=== PATIENT | male | born 1990 | race Caucasian/White ===

== ENCOUNTER 2020-07-14 19:47 | Emergency (ER) | payer MEDICAID, SELFPAY ==
[2020-07-14 19:52] VITALS: BP 138/82; PULSE 95; RESP 15; TEMP 36.7; O2SAT 98; BMI 27.2
--- NOTE | 2020-07-14 21:04 | ED_ITS ---
HPI - Eye Problem General: Chief complaint: Eye Problems Stated complaint: rust in eyes Time Seen by Provider: 07/14/20 20:35 History of Present Illness: HPI Narrative: Patient got rust in both eyes while working on car earlier today. Complains of foreign body in both eyes. chief complaint: foreign body (Right and left) Onset (ago): hour(s) Onset description: sudden Duration: constant Location: both eyes Eye Symptoms: foreign body sensation Place: home Mechanism: other (Rust fell off axle .) Severity: mild Associated symptoms: Denies fever(s) Treatments Prior to Arrival: irrigated eye Review of Systems Const: Denies: fever(s) Eyes: Reports: eye discomfort and increased production of tears; Denies: change in vision, blurry vision or eye redness Psych: Denies: anxiety Physical Exam Const: COMMON NORMALS: no acute distress Eye: COMMON NORMALS: EOMs intact bilaterally EYE IMAGES: 1. Piece of metal I was able to remove 2. Piece of metal i was able to remove Psych: COMMON NORMALS: mental status grossly normal Procedures FB Removal Eye Time Out performed: No Location: eye (L) and eye (R) Topical anesthetic used: tetracaine Foreign body: metal Evidence of corneal penetration: No Technique: needle Procedure performed under: direct visualization with magnification Post-procedure medication: ophthalmic antibiotic and topical anesthetic Patient tolerated procedure: well Course Vital Signs: Vital signs: Vital Signs Temperature 98.0 F 07/14/20 19:52 Pulse Rate 95 07/14/20 19:52 Respiratory Rate 15 07/14/20 19:52 Blood Pressure 138/82 07/14/20 19:52 Pulse Oximetry 98 07/14/20 19:52 Discharge Plan Discharge Patient Disposition: Home Clinical Impression: Retained foreign body of both eyes Condition: Stable Prescriptions: New Gentak 0.3 % (3 mg/gram) ointment 1 applic ophthalmic (eye) TID 5 Days Qty: 3.5 RF: 0 Discharge Orders: Discharge ED (Routine); Ordered 07/14/20 Ordered By: Gentry Borden Referrals: Maria Teresa Nieves PAC [Primary Care Provider] - Discharge Diet: Usual diet Discharge Activity: Increase activity as tolerated Patient Instructions: Eye Foreign Body (ED) Activity Restrictions/Additional Instructions: Follow-up with medical provider as directed. Take medications as prescribed. Return to the ER or your medical provider if condition worsens. Please read and understand discharge instructions. If any questions ask please. 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
[2020-07-14] MEDS: tetanus-dipt-pertussis 0.5 mL SDV IM (21:16)
[2020-07-14] MEDS: neomycin-poly-dex Op 5 mL Btl 2 DROP EYE-BOTH (21:17)
[2020-07-14] MEDS: fluorescein 1 mg Strip EYE-RIGHT (21:18)
[2020-07-14] MEDS: eye irrigation 30 mL Btl EYE-RIGHT (21:18)
[2020-07-14] MEDS: tetracaine 0.5% Op Soln 4 mL Btl 1 DROP EYE-RIGHT (21:18)
[2020-07-14 21:20] VITALS: BP 125/72; PULSE 102; RESP 15; TEMP 36.7; O2SAT 98
== END 2020-07-14 21:45 | disposition home or self-care (01) ==
PROVIDERS: Emergency Provider Nurse Practitioner Family; PCP Physician Assistant
DX: T15.92XA Foreign body on external eye, part unspecified, left eye, initial encounter (principal); T15.91XA Foreign body on external eye, part unspecified, right eye, initial encounter; Z23 Encounter for immunization; X58.XXXA Exposure to other specified factors, initial encounter
CPT/HCPCS: 65205; 65220; 90471; 90715; 99283

== ENCOUNTER 2020-07-15 15:19 | Emergency (ER) | payer MEDICAID, SELFPAY ==
[2020-07-15 15:34] VITALS: BP 110/75; PULSE 81; RESP 18; TEMP 36.5; O2SAT 97; BMI 27.2
--- NOTE | 2020-07-15 18:25 | ED_ITS ---
HPI - Eye Problem General: Chief complaint: Eye Problems Stated complaint: Rust In Eyes. Here 07/14/20 Time Seen by Provider: 07/15/20 18:06 History of Present Illness: HPI Narrative: Mr. Gilliam is able to see just fine. Says his left eye is irritated. Right eye is doing fine. Says drops seen make his eye hurt and complains about eye redness. He said he did not understand his instructions that he was supposed to follow-up with an eye doctor today. He is having clear drainage from his eyes. chief complaint: eye pain and eye redness Onset (ago): hour(s) Onset description: awoke with symptoms Duration: constant Location: left eye Eye Symptoms: burning, redness and foreign body sensation Associated symptoms: Reports no associated symptoms; Denies fever(s) Treatments Prior to Arrival: other (Use neomycin drops that was provided by the ER) Review of Systems Const: Denies: fever(s) Eyes: Reports: eye discomfort, eye discharge and eye redness Neuro: Reports: other (Patient denies drug use) Psych: Denies: anxiety or depression Physical Exam Const: COMMON NORMALS: no acute distress Eye: COMMON NORMALS: Equal, round and reactive pupils present VISUAL ACUITY: Yes acuity normal EYELID: eyelid abnormality (Left lower eyelid slightly puffy.) CONJUNCTIVA: Yes conjunctival abnormal positive right (Appears normal) and positive left conjunctival injection PUPIL: Yes Equal, round and reactive pupils present OTHER: Magnification exam again on both eyes did not reveal any foreign body retained in the eye. Left groin area still has slight laceration from removal of foreign body last night laceration is not red does not appear infected conjunctive in the right corner is red tetracaine drops were placed again. Psych: COMMON NORMALS: mental status grossly normal Course Vital Signs: Vital signs: Vital Signs Temperature 97.7 F 07/15/20 15:34 Pulse Rate 81 07/15/20 15:34 Respiratory Rate 18 07/15/20 15:34 Blood Pressure 110/75 07/15/20 15:34 Pulse Oximetry 97 07/15/20 15:34 MDM - Eye Problem MDM Narrative: Medical decision making narrative: No foreign body noted on exam. Patient does have some conjunctival injection to the left eye. Clear drainage. Visual naranjo are fine eyesight is fine. No rust rings noted on magnification exam. No foreign body noted on exam. Patient encouraged to follow-up Dr. Simmons in the morning for possible slit laMP exam. Discharge Plan Discharge Patient Disposition: Home Clinical Impression: Acute atopic conjunctivitis Qualifiers: Laterality: left Qualified Code(s): H10.12 - Acute atopic conjunctivitis, left eye Condition: Stable Prescriptions: No Action Gentak 0.3 % (3 mg/gram) ointment 1 applic ophthalmic (eye) TID 5 Days Qty: 3.5 RF: 0 Discharge Orders: Discharge ED (Routine); Ordered 07/15/20 Ordered By: Gentry Borden Referrals: Maria Teresa Nieves PAC [Primary Care Provider] - Discharge Diet: Usual diet Discharge Activity: Increase activity as tolerated Patient Instructions: Conjunctivitis (ED) Activity Restrictions/Additional Instructions: Stop with neomycin drops. Follow-up with Dr. Simmons's office in the morning. Use Genentak drops 2 drops in the eye every 8 hours. 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
[2020-07-15] MEDS: gentamicin 0.3% Op Soln 5 mL Btl 1 DROP EYE-LEFT (19:20)
== END 2020-07-15 19:23 | disposition home or self-care (01) ==
PROVIDERS: Emergency Provider Nurse Practitioner Family; PCP Physician Assistant
DX: H10.12 Acute atopic conjunctivitis, left eye (principal)
CPT/HCPCS: 99282

== ENCOUNTER 2022-03-28 10:55 | Emergency (ER) | payer MEDICAID, SELFPAY ==
[2022-03-28 11:08] VITALS: BP 155/106; PULSE 102; RESP 17; TEMP 37.6; O2SAT 99; BMI 28.7
[2022-03-28 11:45] VITALS: BP 140/95; PULSE 110; RESP 18; O2SAT 98
[2022-03-28 12:48] LABS: Basophils % 0.2 %; Eosinophils # 0.2 10^3/uL (0.0-0.8); Hematocrit 45.7 % (42.0-52.0); Lymphocytes # 1.2 10^3/uL (0.8-4.8); Lymphocytes % 5.8 %; Mean Corpuscular HGB Conc 32.8 g/dL (30.0-36.0); Mean Corpuscular Hemoglobin 31.4 pg (28.0-34.0); Mean Corpuscular Volume 95.6 fl (80-94); Mean Platelet Volume 11.6 fL (7.4-10.4); Monocytes # 2.7 10^3/uL (0.2-0.9); Monocytes % 13.2 %; Neutrophils # 15.88 10^3/uL (1.8-7.7); Neutrophils % 79.2 %; Nucleated Red Blood Cells % 0 %; Platelet Count 208 10^3/cmm (130-400); Red Blood Count 4.78 10^6/uL (4.1-5.3); Red Cell Distribution Width 11.9 % (12.1-15.1); White Blood Count 20.1 10^3/uL (4.0-10.0)
[2022-03-28] MEDS: sodium chloride 0.9% 1,000 ML 999 ML IV (13:04)
[2022-03-28] MEDS: ketorolac 30 mg/mL INJ IVP (13:05)
[2022-03-28] MEDS: dexamethasone 4 mg/mL INJ IVP (13:05)
[2022-03-28 14:04] LABS: Rapid Strep A Test Negative (Negative)
[2022-03-28 14:32] LABS: Alanine Aminotransferase 19 U/L (0-41); Alkaline Phosphatase 71 U/L (40-130); Anion Gap 12.6 (5-19); Aspartate Amino Transferase 14 U/L (0-40); Blood Urea Nitrogen 8 mg/dL (6-20); Calcium 8.7 mg/dL (8.5-10.5); Carbon Dioxide 27 mmol/L (22-29); Chloride 101 mmol/L (98-107); Globulin 2.7 g/dL (1.3-4.6); Glomerular Filtration Rate 155.2 mL/min (90-130); Glucose 110 mg/dL (65-115); Osmolality Calculated 283 mOsm/kg (285-295); Potassium 3.6 mmol/L (3.5-5.1); Sodium 137 mmol/L (136-145); Total Bilirubin 0.7 mg/dL (0.15-1.2); Total Protein 6.7 g/dL (6.6-8.7)
--- NOTE | 2022-03-28 14:36 | CTR_ITS ---
PROCEDURE INFORMATION: Exam: CT Neck With Contrast Exam date and time: 03/28/2022 3:11 PM Age: 32 years old Clinical indication: Painful swallowing; Additional info: Pain, swelling tonsils, CT soft tissue neck eval for peritonsillar abscess TECHNIQUE: Imaging protocol: Computed tomography of the neck with contrast. Radiation optimization: All CT scans at this facility use at least one of these dose optimization techniques: automated exposure control; mA and/or kV adjustment per patient size (includes targeted exams where dose is matched to clinical indication); or iterative reconstruction. Contrast material: OMNI 350; Contrast volume: 80 ml; Contrast route: INTRAVENOUS (IV); COMPARISON: CT cervical spin wo con* [id number] 12/19/2017 9:06 PM RADIATION DOSE METRICS: Total DLP (mGy-cm): 277.95 FINDINGS: Paranasal sinuses: There is an air-fluid level in the left maxillary sinus. Pharynx: There is enlargement of the adenoids. There is enlargement of the tonsils. No evidence of peritonsillar abscess. Larynx: Unremarkable. Epiglottis is normal. Prevertebral and retropharyngeal spaces: Unremarkable. No retropharyngeal effusion or abscess. Salivary glands: Normal. Glands are normal in size. Thyroid: Normal. No enlarged or calcified nodules. Lymph nodes: There are bilateral cervical lymph nodes measuring up to 11 mm in short axis consistent with reactive adenopathy. No grossly enlarged lymph nodes. Trachea: Visualized trachea is unremarkable. Lungs: Unremarkable as visualized. Bones/joints: Unremarkable. No acute fracture. Soft tissues: Unremarkable. No significant soft tissue swelling. CT/CT neck w con* [id number] IMPRESSION: Enlarged adenoids and tonsils. No evidence of abscess.
[2022-03-28 14:44] VITALS: BP 170/97; PULSE 118; RESP 18; O2SAT 94
[2022-03-28] MEDS: iohexol 350 mg/mL 500 mL Btl (per mL) IV (15:15)
[2022-03-28 15:26] LABS: Monoscreen Negative (Negative)
[2022-03-28 15:30] VITALS: BP 170/97; PULSE 114; RESP 16; O2SAT 95
--- NOTE | 2022-03-28 16:28 | W.ED.GENADLT ---
HPI - General Adult General: Chief complaint: General Medical Stated complaint: tonsil/tongue swelling Time Seen by Provider: 03/28/22 11:00 History of Present Illness: Patient is in today for sore throat. Patient reports that starting last night he developed an extremely sore throat is hard to talk and swallow. He reports that he has not noticed a fever but he is feeling generally ill. Associated symptoms: Deny chest pain, dyspnea, nausea, palpitations or vomiting Review of Systems Const: Denies: fever(s), chills or body aches ENMT: Reports: throat pain, enlarged tonsils and odynophagia Card: Denies: chest pain, palpitations or irregular heart rhythm Resp: Denies: dyspnea, productive cough or non-productive cough GI: Denies: abdominal pain, nausea or vomiting : Denies: flank pain, difficulty urinating or dysuria Musc: Reports: neck pain; Denies: back pain or extremity pain Physical Exam Const: OTHER: Patient is ill-appearing, nontoxic HENMT: THROAT: uvula midline and posterior oropharynx abnormal edema, erythema and exudates; no peritonsillar mass OTHER: Patient does have swelling bilateral tonsils 1+ not kissing. Exudate is noticed. No definitive abscess appreciated. Patient has a definite hot potato voice but is able to open his jaw so that a tongue blade can be used to evaluate his posterior oropharynx Neck/C-Spine: COMMON NORMALS: no JVD Lymph: LYMPHATIC: lymphadenopathy (Left anterior cervical) Resp: COMMON NORMALS: normal respiratory effort, No use of accessory muscles and clear to auscultation bilaterally AUSCULTATION: clear to auscultation bilaterally Cardio: COMMON NORMALS: no JVD, regular rhythm, S1 normal heart sound present, S2 normal heart sound present and No murmurs present (Cardio) RATE: tachycardic RHYTHM: regular rhythm HEART SOUNDS: S1 normal heart sound present and S2 normal heart sound present Course Vital Signs: Vital signs: Vital Signs Temperature 99.6 F 03/28/22 11:08 Pulse Rate 114 H 03/28/22 15:30 Respiratory Rate 16 03/28/22 15:30 Blood Pressure 170/97 03/28/22 15:30 Pulse Oximetry 95 03/28/22 15:30 Oxygen Delivery Me thod 03/28/22 15:30 [facility] - General Adult Medical Decision Making Consider tonsil cellulitis, tonsillar abscess, exudative tonsillitis, strep pharyngitis, mononucleosis and White blood cell count 20.1 Patient treated with IV Decadron, IV fluids, Toradol. CT scan neck does not show any acute abscess. Patient has a hot potato voice, but his airway is patent. I did discuss this case with Dr. Fitzpatrick who agrees with work-up and discharge plan but recommends adding an additional 6 mg of Decadron for a total of a 10 mg dose in ER today. Discharge instructions given to patient with conservative measures recommended. Advised him to take antibiotics as directed. Follow-up with primary care provider. Return to the ER for any new or worsening symptoms. Lab Data 03/28/22 12:36 03/28/22 13:[address] 03/28/22 14:36 IMPRESSION: Enlarged adenoids and tonsils. No evidence of abscess. Laboratory Results WBC 20.1 10^3/uL (4.0-10.0) H 03/28/22 12:36 RBC 4.78 10^6/uL (4.1-5.3) 03/28/22 12:36 Hgb 15.0 g/dL (11.7-16.6) 03/28/22 12:36 Hct 45.7 % (42.0-52.0) 03/28/22 12:36 MCV 95.6 fl (80-94) H 03/28/22 12:36 MCH 31.4 pg (28.0-34.0) 03/28/22 12:36 MCHC 32.8 g/dL (30.0-36.0) 03/28/22 12:36 RDW 11.9 % (12.1-15.1) L 03/28/22 12:36 Plt Count 208 10^3/cmm (130-400) 03/28/22 12:36 MPV 11.6 fL (7.4-10.4) H 03/28/22 12:36 Neut % (Auto) 79.2 % 03/28/22 12:36 Lymph % (Auto) 5.8 % 03/28/22 12:36 Shoshone % (Auto) 13.2 % 03/28/22 12:36 Eos % (Auto) 1.0 % 03/28/22 12:36 Baso % (Auto) 0.2 % 03/28/22 12:36 Neut # (Auto) 15.88 10^3/uL (1.8-7.7) H 03/28/22 12:36 Lymph # (Auto) 1.2 10^3/uL (0.8-4.8) 03/28/22 12:36 Shoshone # (Auto) 2.7 10^3/uL (0.2-0.9) H 03/28/22 12:36 Eos # (Auto) 0.2 10^3/uL (0.0-0.8) 03/28/22 12:36 Baso # (Auto) 0.0 10^3/uL (0.0-0.1) 03/28/22 12:36 Nucleated RBC % (auto) 0 % 03/28/22 12:36 Nucleated RBCs # 0.0 /100WBC 03/28/22 12:36 Sodium 137 mmol/L (136-145) 03/28/22 13:58 Potassium 3.6 mmol/L (3.5-5.1) 03/28/22 13:58 Chloride 101 mmol/L (98-107) 03/28/22 13:58 Carbon Dioxide 27 mmol/L (22-29) 03/28/22 13:58 Anion Gap 12.6 (5-19) 03/28/22 13:58 BUN 8 mg/dL (6-20) 03/28/22 13:58 Creatinine 0.6 mg/dL (0.7-1.2) L 03/28/22 13:58 GFR Calculation 155.2 mL/min (90-130) H 03/28/22 13:58 Glucose 110 mg/dL (65-115) 03/28/22 13:58 Calculated Osmolality 283 mOsm/kg (285-295) L 03/28/22 13:58 Calcium 8.7 mg/dL (8.5-10.5) 03/28/22 13:58 Total Bilirubin 0.7 mg/dL (0.15-1.2) 03/28/22 13:58 AST 14 U/L (0-40) 03/28/22 13:58 ALT 19 U/L (0-41) 03/28/22 13:58 Alkaline Phosphatase 71 U/L (40-130) 03/28/22 13:58 Total Protein 6.7 g/dL (6.6-8.7) 03/28/22 13:58 Albumin 4.0 g/dL (3.5-5.2) 03/28/22 13:58 Globulin 2.7 g/dL (1.3-4.6) 03/28/22 13:58 Monoscreen Negative (Negative) 03/28/22 13:58 Group A Strep Rapid Negative (Negative) 03/28/22 13:08 Discharge Plan Discharge Patient Disposition: Home Clinical Impression: Exudative tonsillitis Condition: Stable Prescriptions: New amoxicillin-pot clavulanate 875-125 mg tablet 1 tab PO BID 10 Days Qty: 20 0RF prednisone 20 mg tablet 40 mg PO DAILY 5 Days Qty: 10 0RF Discharge Orders: Discharge ED (Routine); Ordered 03/28/22 Ordered By: Cathi Ojeda Referrals: Julia Yousif [Primary Care Provider] - Discharge Diet: Advance as tolerated Discharge Activity: Increase activity as tolerated Patient Instructions: Tonsillitis - Adult Activity Restrictions/Additional Instructions: Take antibiotics as directed start antibiotics and steroids tomorrow morning. Make sure that you are staying well-hydrated. Cold liquids can help ease the pain receptors. Gargle with warm salt water can help as well. Follow-up with primary care provider next week. Return to the ER for any new or worsening symptoms. 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
[2022-03-28] MEDS: dexamethasone 10 mg/mL INJ 6 MG IVP (16:48)
[2022-03-28] MEDS: cefTRIAXone 1,000 MG in sodium chloride 0.9% (plus) 50 ML 100 MG IV (16:48)
== END 2022-03-28 17:25 | disposition home or self-care (01) ==
PROVIDERS: Emergency Provider Nurse Practitioner Family; PCP Nurse Practitioner Family
DX: J03.90 Acute tonsillitis, unspecified (principal)
CPT/HCPCS: 36415; 70491; 80053; 85025; 86308; 87081; 87880; 96365; 96375; 96376; 99285; J0696; J1100; J1885; J7030; Q9967

== ENCOUNTER 2022-09-04 22:05 | Emergency (ER) | payer MEDICAID, SELFPAY ==
[2022-09-04 22:12] VITALS: BP 125/85; PULSE 84; RESP 14; TEMP 36.7; O2SAT 97
--- NOTE | 2022-09-04 23:15 | ED_ITS ---
HPI - Wound/Laceration General: Chief Complaint: Wound/Laceration Stated Complaint: Right Wrist Injury Time Seen by Provider: 09/04/22 22:58 Source: patient Mode of arrival: ambulatory Limitations: no limitations History of Present Illness: Patient presents emergency department today for evaluation treatment of laceration to the right wrist. Patient states that he accidentally cut his wrist on some broken glass. He states he has been keeping pressure on it and bleeding has been controlled. He reports his tetanus immunization is up-to-date as he believes it was in 2019. Review of Systems General: Reports: 10 or more systems reviewed and unremarkable except in HPI and below Physical Exam Const: COMMON NORMALS: no acute distress, average body habitus and patient oriented x3 HENMT: COMMON NORMALS: normocephalic, atraumatic, hearing grossly normal bilaterally, Normal external nose present and moist oral mucous membranes HEAD & SCALP: normocephalic and atraumatic NOSE: Normal external nose present Eye: COMMON NORMALS: Equal, round and reactive pupils present, EOMs intact bilaterally and conjunctivae normal CONJUNCTIVA: Yes conjunctivae normal PUPIL: Yes Equal, round and reactive pupils present Neck/C-Spine: COMMON NORMALS: no JVD Lymph: LYMPHATIC: no lymphadenopathy noted Resp: COMMON NORMALS: normal respiratory effort, No retractions and No use of accessory muscles Cardio: COMMON NORMALS: no JVD, regular rate and regular rhythm RATE: regular rate RHYTHM: regular rhythm GI: COMMON NORMALS: Normal to inspection, nondistended, normoactive bowel sounds present : COMMON NORMALS: Yes no CVA tenderness BLADDER/KIDNEY EXAM: Yes no CVA tenderness Back/Pelvis: COMMON NORMALS: no CVA tenderness and thoraco-lumbar ROM normal Extremity: COMMON NORMALS: normal to inspection, full ROM and capillary refill normal Neuro: COMMON NORMALS: patient oriented x3 Psych: COMMON NORMALS: mental status grossly normal, Normal thought process present, cooperative, normal affect and activity/motor behavior normal THOUGHT PROCESS: Normal thought process present Skin: NARRATIVE SKIN EXAM: Patient has a linear laceration approximately 1 cm in length located to the right posterior lateral wrist without active bleeding. Full-thickness with a small amount of adipose tissue visible but, no signs of underlying structures. Procedures Laceration Laceration 1: Site: upper extremity (Wrist-dorsal/lateral) Side (If applicable): right Size (cm): 1 Description: linear and clean Depth: simple, single layer Local Anesthetic: lidocaine 1% Amount of anesthesia used (mL): 1.5 Pre-repair: wound explored, irrigated extensively and deep structures intact Skin layer closed with: nylon Size (cm): 4-0 Number of sutures: 3 Technique: simple, interrupted Course Vital Signs: Vital signs: Vital Signs Temperature 98.0 F 09/04/22 22:12 Pulse Rate 84 09/04/22 22:12 Respiratory Rate 14 09/04/22 22:12 Blood Pressure 125/85 09/04/22 22:12 Pulse Oximetry 97 09/04/22 22:12 Oxygen Delivery Me thod Room Air 09/04/22 22:12 MDM - Wound/Laceration Medical Decision Making Patient presented to the ER today for evaluation and treatment of laceration on his wrist. Patient's tetanus is up-to-date and bleeding is well controlled. Patient's wound was anesthetized, cleaned, repaired here in the emergency department. Patient's wound was cleaned with Betadine and irrigated with saline flushes. Patient received 3, 4-0 nylon sutures which the patient was told needs to be removed in 10 days. We went over strict wound care with twice a day washing with warm water and mild soap. We went over bandaging instructions and the importance of keeping the wound clean and dry. Went over strict return precautions for concerns of wound infection for which patient needs to be seen and reevaluated. Patient verbalized understanding and agreement to treatment plan. Differential Diagnosis Likely laceration, abrasion and avulsion of skin Discharge Plan Discharge Patient Disposition: Home Clinical Impression: Laceration of wrist, right Condition: Stable Discharge Orders: Discharge ED (Routine); Ordered 09/05/22 Ordered By: Autumn Marrero Referrals: Brain Santos DO [Primary Care Provider] - Discharge Diet: Usual diet Discharge Activity: Limit activity as instructed Patient Instructions: Care For Your Stitches (ED) Activity Restrictions/Additional Instructions: We were able to anesthetize, clean, and repair your wrist laceration here in the emergency department. You have [address] which need to be removed in 10 days. You can have these removed at your primary care office, urgent care, or the emergency department. We do recommend washing your wound twice a day with warm water and a mild soap. Due to its location we do recommend keeping it covered with bandaging to keep it dry and clean. If for any reason your bandaging or wound becomes wet or soiled you need to clean it and replace with clean bandaging. If for any reason the area becomes suddenly swollen, red, or starts draining a thick green or yellow material you need to be seen and reevaluated. 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
[2022-09-05] MEDS: lidocaine 1% INJ 10 mL (per mL) 3 ML INTRADERMA (00:14)
== END 2022-09-05 00:18 | disposition home or self-care (01) ==
PROVIDERS: Emergency Provider Physician Assistant; PCP Family Medicine
DX: S61.511A Laceration without foreign body of right wrist, initial encounter (principal); W25.XXXA Contact with sharp glass, initial encounter
CPT/HCPCS: 12001; 99282

== ENCOUNTER 2023-10-24 19:34 | Emergency (ER) | payer MEDICAID, SELFPAY ==
[2023-10-24] VITALS (7 sets, daily range): BP systolic 133–152; BP diastolic 83–103; PULSE 93–147; RESP 18–22; TEMP 36.6; O2SAT 97–98; BMI 27.1
--- NOTE | 2023-10-24 19:47 | W.ED.EXTPRO ---
HPI - Extremity Problem General: Chief complaint: Extremity Injury, Lower Stated complaint: Left ankle Pain Time Seen by Provider: 10/24/23 19:44 History of Present Illness: 33-year-old male patient comes in for injury to the left foot and ankle. Patient reports approximate 10 days ago he had a long come down on his foot. Patient was then incarcerated for the last 10 days and had just gotten out yesterday. Patient reports taking some ibuprofen and Tylenol and fish amoxicillin. Patient reported bruising and swelling since the injury. Review of Systems General: Reports: 10 or more systems reviewed and unremarkable except in HPI and below Physical Exam Const: COMMON NORMALS: alert HENMT: COMMON NORMALS: normocephalic HEAD & SCALP: normocephalic Neck/C-Spine: COMMON NORMALS: full ROM Resp: COMMON NORMALS: normal respiratory effort and clear to auscultation bilaterally AUSCULTATION: clear to auscultation bilaterally Cardio: COMMON NORMALS: regular rate RATE: regular rate Back/Pelvis: COMMON NORMALS: thoracic and lumbar spine normal to inspection Extremity: LEFT LOWER EXTREMITY: Yes foot & digits (Dorsal redness and swelling and mild ecchymosis) Neuro: SENSORIUM/ORIENTATION: Yes alert Skin: NARRATIVE SKIN EXAM: Erythematous left foot dorsal aspect Course Vital Signs: Vital signs: Vital Signs Temperature 97.9 F 10/24/23 19:38 Pulse Rate 101 H 10/24/23 21:30 Respiratory Rate 22 H 10/24/23 20:27 Blood Pressure 136/87 10/24/23 21:30 Pulse Oximetry 98 10/24/23 21:30 Oxygen Delivery Me thod Room Air 10/24/23 21:30 MDM - Extremity (Nontraumatic) Medical Decision Making Patient comes in today for complaints of pain to the left foot. Patient also reports significant swelling and redness to the left foot. Patient reports approximately 10 days ago he had a large come down on his foot but during that time he had to spend it in [facility]. Since then patient has had increased redness and swelling to the foot. Patient appears nontoxic. Patient appears no acute distress. Patient appears in mild to moderate pain. Differential diagnosis includes but not limited to fracture, cellulitis, gouty arthritis, DVT. D-dimer was negative. CBC noted a 15,000 white count. CRP was slightly elevated at 11. Lactic was 1.8. Sed rate was 8. Remainder of the CMP was unremarkable. Patient be treated for cellulitis of the foot. Patient was given vancomycin and Rocephin in the emergency room. Patient to continue on Augmentin and Bactrim for further treatment. Patient and family both reported understanding of care plan and need for follow-up or return to the ER. Lab Data 10/24/23 20:18 10/24/23 20:18 Radiology Impressions Ankle X-Ray 10/24/23 19:49 IMPRESSION: No acute fractures or subluxations. Laboratory Results WBC 15.26 10^3/uL (3.29-11.43) H 10/24/23 20:18 RBC 4.66 10^6/uL (3.85-5.65) 10/24/23 20:18 Hgb 14.90 g/dL (11.27-16.99) 10/24/23 20:18 Hct 44.8 % (37-53) 10/24/23 20:18 MCV 96.1 fl (82-101) 10/24/23 20:18 MCH 32.0 pg (27-33) 10/24/23 20:18 MCHC 33.3 g/dL (30-55) 10/24/23 20:18 RDW 12.2 % (12.1-15.1) 10/24/23 20:18 Plt Count 309 10^3/cmm (157-399) 10/24/23 20:18 MPV 10.9 fL (7.4-10.4) H 10/24/23 20:18 Neut % (Auto) 62.3 % 10/24/23 20:18 Lymph % (Auto) 18.5 % 10/24/23 20:18 [place] % (Auto) 15.9 % 10/24/23 20:18 Eos % (Auto) 2.6 % 10/24/23 20:18 Baso % (Auto) 0.4 % 10/24/23 20:18 Neut # (Auto) 9.50 10^3/uL (1.8-7.7) H 10/24/23 20:18 Lymph # (Auto) 2.8 10^3/uL (0.8-4.8) 10/24/23 20:18 [place] # (Auto) 2.4 10^3/uL (0.2-0.9) H 10/24/23 20:18 Eos # (Auto) 0.4 10^3/uL (0.0-0.8) 10/24/23 20:18 Baso # (Auto) 0.1 10^3/uL (0.0-0.1) 10/24/23 20:18 Nucleated RBC % (auto) 0 % 10/24/23 20:18 Nucleated RBCs # 0.0 /100WBC 10/24/23 20:18 ESR 8 mm/hr (0-10) 10/24/23 20:18 D-Dimer <= 0.27 ug/mLFEU (0-0.59) 10/24/23 20:18 Sodium 142 mmol/L (136-145) 10/24/23 20:18 Potassium 4.3 mmol/L (3.5-5.1) 10/24/23 20:18 Chloride 105 mmol/L (98-107) 10/24/23 20:18 Carbon Dioxide 25 mmol/L (22-29) 10/24/23 20:18 Anion Gap 16.3 (5-19) 10/24/23 20:18 BUN 10 mg/dL (6-20) 10/24/23 20:18 Creatinine 0.7 mg/dL (0.7-1.2) 10/24/23 20:18 GFR Calculation 129.1 mL/min (90-130) 10/24/23 20:18 Glucose 105 mg/dL (65-115) 10/24/23 20:18 Calculated Osmolality 293 mOsm/kg (285-295) 10/24/23 20:18 Lactic Acid 1.8 mmol/L (0.5-2.2) 10/24/23 20:18 Uric Acid 6.1 mg/dL (3.4-7.0) 10/24/23 20:18 Calcium 9.0 mg/dL (8.5-10.5) 10/24/23 20:18 Total Bilirubin 0.6 mg/dL (0.15-1.2) 10/24/23 20:18 AST 21 U/L (0-40) 10/24/23 20:18 ALT 22 U/L (0-41) 10/24/23 20:18 Alkaline Phosphatase 76 U/L (40-130) 10/24/23 20:18 C-Reactive Protein 11.0 mg/L (0.0-4.9) H 10/24/23 20:18 Total Protein 7.2 g/dL (6.6-8.7) 10/24/23 20:18 Albumin 4.2 g/dL (3.5-5.2) 10/24/23 20:18 Globulin 3.0 g/dL (1.3-4.6) 10/24/23 20:18 All radiology interpretation(s) finalized by discharge Discharge Plan Discharge Patient Disposition: Home Clinical Impression: Cellulitis of foot Condition: Stable Prescriptions: New amoxicillin-pot clavulanate 875-125 mg tablet 1 tab PO BID Qty: 14 0RF sulfamethoxazole-trimethoprim 800-160 mg tablet 1 tab PO BID 7 Days Qty: 14 0RF diclofenac sodium 75 mg tablet,delayed release (DR/EC) 75 mg PO Q12H Qty: 14 0RF Discharge Orders: Discharge ED (Routine); Ordered 10/24/23 Ordered By: Adin La Referrals: Brain Santos DO [Primary Care Provider] - Discharge Diet: Usual diet Discharge Activity: Increase activity as tolerated Activity Restrictions/Additional Instructions: Home and rest. Elevate foot to the level of the heart. Take antibiotics as directed. Follow-up with primary care for further instructions. Return to ED for new concerns. 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
--- NOTE | 2023-10-24 19:49 | XRR_ITS ---
PROCEDURE INFORMATION: Exam: XR Left Ankle Exam date and time: 10/24/2023 8:08 PM Age: 33 years old Clinical indication: Ankle and foot; Left; Patient HX: Lt ankle/foot pain/swelling/erythema after log fell onto leg TECHNIQUE: Imaging protocol: Radiologic exam of the left ankle. Views: 3 or more views. COMPARISON: CR XR foot LT min 3V* [id number] 10/24/2023 8:08 PM FINDINGS: Bones/joints: No acute fractures or subluxations. The ankle mortise is intact. Soft tissues: Soft tissue swelling of the lower extremity. XR/XR ankle LT min 3V* [id number] IMPRESSION: No acute fractures or subluxations.
--- NOTE | 2023-10-24 19:49 | XRR_ITS ---
PROCEDURE INFORMATION: Exam: XR Left Foot Exam date and time: 10/24/2023 8:08 PM Age: 33 years old Clinical indication: Ankle and foot; Left; Patient HX: Lt ankle/foot pain/swelling/erythema after log fell onto leg TECHNIQUE: Imaging protocol: Radiologic exam of the left foot. Views: 3 or more views. COMPARISON: CR (LOW EXM, ) 10/24/2023 8:08 PM FINDINGS: Bones/joints: No acute fractures or subluxations. Soft tissues: Soft tissue swelling of the foot. XR/XR foot LT min 3V* [id number] IMPRESSION: No acute fractures or subluxations. Soft tissue swelling of the foot.
[2023-10-24] MEDS: morphine 4 mg/mL SDV 1 mL IVP (20:18)
[2023-10-24] MEDS: ketorolac 30 mg/mL INJ 15 MG IVP (20:22)
[2023-10-24] MEDS: sodium chloride 0.9% 1,000 ML 999 ML IV (20:27)
[2023-10-24 20:30] LABS: Basophils # 0.1 10^3/uL (0.0-0.1); Basophils % 0.4 %; Eosinophils # 0.4 10^3/uL (0.0-0.8); Eosinophils % 2.6 %; Hematocrit 44.8 % (37-53); Lymphocytes # 2.8 10^3/uL (0.8-4.8); Lymphocytes % 18.5 %; Mean Corpuscular HGB Conc 33.3 g/dL (30-55); Mean Corpuscular Volume 96.1 fl (82-101); Mean Platelet Volume 10.9 fL (7.4-10.4); Monocytes # 2.4 10^3/uL (0.2-0.9); Monocytes % 15.9 %; Neutrophils % 62.3 %; Nucleated Red Blood Cells % 0 %; Platelet Count 309 10^3/cmm (157-399); Red Blood Count 4.66 10^6/uL (3.85-5.65); Red Cell Distribution Width 12.2 % (12.1-15.1); White Blood Count 15.26 10^3/uL (3.29-11.43)
[2023-10-24 20:36] LABS: Erythrocyte Sedimentation Rate 8 mm/hr (0-10)
[2023-10-24 20:51] LABS: Alanine Aminotransferase 22 U/L (0-41); Albumin Level 4.2 g/dL (3.5-5.2); Alkaline Phosphatase 76 U/L (40-130); Anion Gap 16.3 (5-19); Aspartate Amino Transferase 21 U/L (0-40); Blood Urea Nitrogen 10 mg/dL (6-20); Carbon Dioxide 25 mmol/L (22-29); Chloride 105 mmol/L (98-107); Creatinine Clr Calc Pharmacy 169.4326; Glomerular Filtration Rate 129.1 mL/min (90-130); Glucose 105 mg/dL (65-115); Osmolality Calculated 293 mOsm/kg (285-295); Potassium 4.3 mmol/L (3.5-5.1); Sodium 142 mmol/L (136-145); Total Bilirubin 0.6 mg/dL (0.15-1.2); Total Protein 7.2 g/dL (6.6-8.7); Uric Acid 6.1 mg/dL (3.4-7.0)
[2023-10-24 20:52] LABS: Lactic Sepsis W/Reflex 1.8 mmol/L (0.5-2.2)
[2023-10-24 20:55] LABS: D Dimer <= 0.27 ug/mLFEU (0-0.59)
[2023-10-24] MEDS: cefTRIAXone 2,000 mg SDV 2000 MG IVP (21:00)
[2023-10-24] MEDS: vancomycin 1,000 MG in sodium chloride 0.9% 250 ML 250 MG IV (21:10)
== END 2023-10-24 22:26 | disposition home or self-care (01) ==
PROVIDERS: Emergency Provider Nurse Practitioner Family; PCP Family Medicine
DX: L03.116 Cellulitis of left lower limb (principal); W20.8XXA Other cause of strike by thrown, projected or falling object, initial encounter
CPT/HCPCS: 36415; 73610; 73630; 80053; 83605; 84550; 85025; 85378; 85651; 86140; 96365; 96375; 99284; E0114; J0696; J1885; J2270; J3370; J7030; J7050

== ENCOUNTER 2024-01-26 09:21 | Emergency (ER) | payer BC, MEDICAID, SELFPAY ==
[2024-01-26 09:24] VITALS: BP 148/106; PULSE 90; RESP 16; TEMP 36.8; O2SAT 96; BMI 26.3
[2024-01-26 09:31] VITALS: BP 148/106; PULSE 91; O2SAT 93
--- NOTE | 2024-01-26 09:31 | XR_ITS ---
WS: [id number] XR KUB portable [id number] REASON FOR EXAM: constipation FINDINGS: No free air or retroperitoneal air. Large retained stool volume in the right, transverse, and left colon. Large amount of retained stool volume in the rectum. No urinary tract calculi identified. No organomegaly or mass. Multiple small metallic coils, presumed extraneous artifact overlie the left pelvis. XR/XR KUB portable [id number] IMPRESSION: No acute abnormality. Significant retained stool volume as above.
--- NOTE | 2024-01-26 09:44 | ED_ITS ---
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 Associated Symptoms: Reports constipation; Denies chills, diarrhea, fever(s), nausea and vomiting Related Data Previous Rx's Medication Instructions Recorded amoxicillin 875 mg-potassium 1 tab PO BID #14 tabs 10/24/23 clavulanate 125 mg tablet diclofenac sodium 75 mg 75 mg PO Q12H #14 tabs 10/24/23 tablet,delayed release polyethylene glycol 3350 17 gram 17 g PO DAILY #14 ea 01/26/24 oral powder packet (Miralax) Allergies Allergy/AdvReac Type Severity Reaction Status Date / Time tramadol Allergy ALGY-Difficulty Verified 09/04/22 22:17 Breathing venom-wasp Allergy ALGY-Hives Verified 10/24/23 19:42 Review of Systems 2 Const: Denies: fever(s), chills, body aches or change in appetite ENMT: Denies: throat pain or dental pain Card: Denies: chest pain Resp: Denies: dyspnea GI: Reports: abdominal pain and constipation; Denies: nausea, vomiting or diarrhea Musc: Denies: neck pain or back pain Skin/Breast: Denies: rash Neuro: Denies: headache(s) Physical Exam 2 Const: COMMON NORMALS: no acute distress, patient oriented x3 and healthy appearing HENMT: COMMON NORMALS: normocephalic and atraumatic HEAD & SCALP: n ormocephalic and atraumatic Eye: COMMON NORMALS: conjunctivae normal CONJUNCTIVA: Yes conjunctivae normal Neck/C-Spine: COMMON NORMALS: full ROM and supple Chest: COMMONS NORMALS: normal inspection of the chest Resp: COMMON NORMALS: normal respiratory effort, No retractions, No use of accessory muscles and clear to auscultation bilaterally AUSCULTATION: clear to auscultation bilaterally Cardio: COMMON NORMALS: regular rate, regular rhythm and No murmurs present (Cardio) RATE: regular rate RHYTHM: regular rhythm GI: COMMON NORMALS: Normal to inspection, nondistended, normoactive bowel sounds present, Soft to palpation and no masses PALPATION: Yes Soft to palpation OTHER: Diffuse tenderness Extremity: COMMON NORMALS: normal to inspection and full ROM Neuro: COMMON NORMALS: patient oriented x3, moves all extremities and no focal motor deficits Psych: COMMON NORMALS: mental status grossly normal, Normal thought process present and cooperative THOUGHT PROCESS: Normal thought process present Skin: COMMON NORMALS: no rashes or lesions noted and no wounds GENERAL SKIN EXAM: no rashes or lesions noted Course 2 Vital Signs: Vital signs: Vital Signs Temperature 98.2 F 01/26/24 09:24 Pulse Rate 103 H 01/26/24 11:55 Respiratory Rate 16 01/26/24 09:24 Blood Pressure 140/96 01/26/24 11:55 Pulse Oximetry 95 01/26/24 11:55 Oxygen Delivery Me thod Room Air 01/26/24 09:31 MDM - Abdominal Pain Medical Decision Making Patient presents here with abdominal pain and constipation he had a bowel movement here we will place him on MiraLAX he stable for discharge follow-up with his PCP and return if worsening Medical Records I reviewed the patient's medical records. Lab Data I reviewed the patient's lab results. 01/26/24 09:47 01/26/24 09:47 Labs/Radiology: Radiology Impressions KUB X-Ray 01/26/24 09:31 IMPRESSION: No acute abnormality. Significant retained stool volume as above. Laboratory Results WBC 10.19 10^3/uL (3.29-11.43) 01/26/24 09:47 RBC 5.40 10^6/uL (3.85-5.65) 01/26/24 09:47 Hgb 16.90 g/dL (11.27-16.99) 01/26/24 09:47 Hct 51.1 % (37-53) 01/26/24 09:47 MCV 94.6 fl (82-101) 01/26/24 09:47 MCH 31.3 pg (27-33) 01/26/24 09:47 MCHC 33.1 g/dL (30-55) 01/26/24 09:47 RDW 12.0 % (12.1-15.1) L 01/26/24 09:47 Plt Count 268 10^3/cmm (157-399) 01/26/24 09:47 MPV 11.2 fL (7.4-10.4) H 01/26/24 09:47 Neut % (Auto) 67.5 % 01/26/24 09:47 Lymph % (Auto) 16.2 % 01/26/24 09:47 [place] % (Auto) 13.4 % 01/26/24 09:47 Eos % (Auto) 2.1 % 01/26/24 09:47 Baso % (Auto) 0.4 % 01/26/24 09:47 Neut # (Auto) 6.88 10^3/uL (1.8-7.7) 01/26/24 09:47 Lymph # (Auto) 1.7 10^3/uL (0.8-4.8) 01/26/24 09:47 [place] # (Auto) 1.4 10^3/uL (0.2-0.9) H 01/26/24 09:47 Eos # (Auto) 0.2 10^3/uL (0.0-0.8) 01/26/24 09:47 Baso # (Auto) 0.0 10^3/uL (0.0-0.1) 01/26/24 09:47 Nucleated RBC % (auto) 0 % 01/26/24 09:47 Nucleated RBCs # 0.0 /100WBC 01/26/24 09:47 Sodium 131 mmol/L (136-145) L 01/26/24 09:47 Potassium 4.3 mmol/L (3.5-5.1) 01/26/24 09:47 Chloride 93 mmol/L (98-107) L 01/26/24 09:47 Carbon Dioxide 29 mmol/L (22-29) 01/26/24 09:47 Anion Gap 13.3 (5-19) 01/26/24 09:47 BUN 9 mg/dL (6-20) 01/26/24 09:47 Creatinine 0.7 mg/dL (0.7-1.2) 01/26/24 09:47 GFR Calculation 129.1 mL/min (90-130) 01/26/24 09:47 Glucose 101 mg/dL (65-115) 01/26/24 09:47 Calculated Osmolality 271 mOsm/kg (285-295) L 01/26/24 09:47 Calcium 9.5 mg/dL (8.5-10.5) 01/26/24 09:47 Total Bilirubin 1.0 mg/dL (0.15-1.2) 01/26/24 09:47 AST 94 U/L (0-40) H 11 09:47 ALT 224 U/L (0-41) H 01/26/24 09:47 Alkaline Phosphatase 67 U/L (40-130) 01/26/24 09:47 Total Protein 6.9 g/dL (6.6-8.7) 01/26/24 09:47 Albumin 4.4 g/dL (3.5-5.2) 01/26/24 09:47 Globulin 2.5 g/dL (1.3-4.6) 01/26/24 09:47 Lipase 14 U/L (13-60) 01/26/24 09:47 All radiology interpretation(s) finalized by discharge Discharge Plan Discharge Patient Disposition: Home Clinical Impression: Constipation Condition: Stable Prescriptions: New polyethylene glycol 3350 [Miralax] 17 gram powder in packet 17 g PO DAILY Qty: 14 0RF No Action amoxicillin-pot clavulanate 875-125 mg tablet 1 tab PO BID Qty: 14 0RF diclofenac sodium 75 mg tablet,delayed release (DR/EC) 75 mg PO Q12H Qty: 14 0RF Discharge Orders: Discharge ED (Routine); Ordered 01/26/24 Ordered By: Patty Fitzpatrick Referrals: Brain Santos DO [Primary Care Provider] - Discharge Diet: Advance as tolerated Discharge Activity: Resume usual activity Patient Instructions: Constipation (ED) Coding Level of Care Code 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
[2024-01-26 10:00] LABS: Basophils % 0.4 %; Eosinophils # 0.2 10^3/uL (0.0-0.8); Eosinophils % 2.1 %; Hematocrit 51.1 % (37-53); Lymphocytes # 1.7 10^3/uL (0.8-4.8); Lymphocytes % 16.2 %; Mean Corpuscular HGB Conc 33.1 g/dL (30-55); Mean Corpuscular Hemoglobin 31.3 pg (27-33); Mean Corpuscular Volume 94.6 fl (82-101); Mean Platelet Volume 11.2 fL (7.4-10.4); Monocytes # 1.4 10^3/uL (0.2-0.9); Monocytes % 13.4 %; Neutrophils # 6.88 10^3/uL (1.8-7.7); Neutrophils % 67.5 %; Nucleated Red Blood Cells % 0 %; Platelet Count 268 10^3/cmm (157-399); White Blood Count 10.19 10^3/uL (3.29-11.43)
[2024-01-26 10:20] LABS: Alanine Aminotransferase 224 U/L (0-41); Albumin Level 4.4 g/dL (3.5-5.2); Alkaline Phosphatase 67 U/L (40-130); Anion Gap 13.3 (5-19); Aspartate Amino Transferase 94 U/L (0-40); Blood Urea Nitrogen 9 mg/dL (6-20); Calcium 9.5 mg/dL (8.5-10.5); Carbon Dioxide 29 mmol/L (22-29); Chloride 93 mmol/L (98-107); Creatinine Clr Calc Pharmacy 167.1427; Globulin 2.5 g/dL (1.3-4.6); Glomerular Filtration Rate 129.1 mL/min (90-130); Glucose 101 mg/dL (65-115); Lipase 14 U/L (13-60); Osmolality Calculated 271 mOsm/kg (285-295); Potassium 4.3 mmol/L (3.5-5.1); Sodium 131 mmol/L (136-145); Total Protein 6.9 g/dL (6.6-8.7)
[2024-01-26] MEDS: lactulose oral liq 20 gm/30 mL UDC 30 GM PO (10:52)
[2024-01-26] MEDS: Fleet Enema 133 mL Enema PR (10:57)
[2024-01-26 11:55] VITALS: BP 140/96; PULSE 103; O2SAT 95
== END 2024-01-26 12:16 | disposition home or self-care (01) ==
PROVIDERS: Emergency Provider Emergency Medicine; PCP Family Medicine
DX: K59.00 Constipation, unspecified (principal)
CPT/HCPCS: 74018; 80053; 83690; 85025; 99284